=== PATIENT | female | born 1995 | race Two or more races ===

== ENCOUNTER 2023-07-02 17:28 | Emergency (ER) | payer MEDICAID ==
[~2023-07-02] VITALS: Ht 180.3 cm; Wt 111.6 kg
[2023-07-02] MEDS ORDERED: KETOROLAC TROMETHAMINE INJ 30 MG/ML VIAL ONE (19:30)
[2023-07-02] MEDS: KETOROLAC TROMETHAMINE INJ 30 MG/ML VIAL IM ONE (19:32)
[2023-07-02 20:05] LABS: BASOPHILS % (AUTO) 0.3 % (0.0-2.0); EOSINOPHILS # (AUTO) 0.2 K/uL (0.0-0.7); EOSINOPHILS % (AUTO) 1.8 % (0.0-6.0); HEMATOCRIT 42 % (33-45); HEMOGLOBIN 14.1 g/dL (11.5-14.8); LYMPHOCYTES # (AUTO) 3.4 K/uL (0.8-4.8); LYMPHOCYTES % (AUTO) 35.5 % (20.0-44.0); MEAN CORPUSCULAR HEMOGLOBIN 29 PG (26.0-33.0); MEAN CORPUSCULAR HGB CONC 34 g/dl (31.0-36.0); MEAN CORPUSCULAR VOLUME 85 fL (82-100); MONOCYTES # (AUTO) 0.3 K/uL (0.1-1.30); MONOCYTES % (AUTO) 3.3 % (2.0-12.0); NEUTROPHILS # (AUTO) 5.6 K/uL (1.8-8.9); NEUTROPHILS % (AUTO) 59.1 % (43.0-81.0); PLATELET COUNT (AUTO) 286 K/uL (150-450); RED BLOOD CELL COUNT(AUTO) 4.89 MIL/uL (4.0-5.2); RED CELL DISTRIBUTION WIDTH 13.5 % (11.5-15.0); WHITE BLOOD COUNT (AUTO) 9.5 K/uL (4.3-11.0)
[2023-07-02 20:19] LABS: CALCIUM, SERUM 8.9 mg/dL (8.5-10.1); CARBON DIOXIDE 27 mmol/L (21-32); CHLORIDE 102 mmol/L (98-107); CREATININE 0.8 mg/dL (0.6-1.3); GLUCOSE 89 mg/dL (74-106); POTASSIUM 3.9 mmol/L (3.5-5.1); SODIUM SERUM 137 mmol/L (136-145); UREA NITROGEN, BLOOD 10 mg/dL (7-18)
[2023-07-02 20:25] LABS: ALANINE AMINOTRANSFERASE 30 U/L (12-78); ALBUMIN 3.9 g/dL (3.4-5.0); ALKALINE PHOSPHATASE 101 U/L (46-116); ASPARTATE AMINOTRANSFERASE 15 U/L (15-37); BILIRUBIN,DIRECT 0.1 mg/dL (0.0-0.2); BILIRUBIN,TOTAL 0.4 mg/dL (0.2-1.0); TOTAL PROTEIN, SERUM 8.3 g/dL (6.4-8.2)
[2023-07-02 20:40] LABS: INR 0.99 (0.91-1.10); PARTIAL THROMBOPLASTIN TIME 29.8 SEC (24.3-34.3); PROTHROMBIN TIME 10.5 SECS (9.2-11.1)
[2023-07-02] MEDS ORDERED: IBUP-1955 PO (21:04)
[2023-07-02] MEDS ORDERED: ACET-2605 PO (21:04)
[2023-07-02 21:24] VITALS: BP 139/94; TEMP 98.6; O2SAT 99
== END 2023-07-02 21:25 | disposition home or self-care (01) ==
LOC: ER 17:28
DX: R07.89 Other chest pain (principal); M25.572 Pain in left ankle and joints of left foot
CPT/HCPCS: 99285; 71045; 96372; 93005; 73610; 85025; 80048; 80076; 36415; 84484; 85730; J1885